=== PATIENT | female | born 1945 | race Caucasian/White ===

== ENCOUNTER 2019-07-31 10:06 | Day surgery (SDC) | payer MEDICARE, OTHER ==
[2019-07-29 15:10] VITALS: BMI 33.2
[~2019-07-31 10:06] MED LIST: LACTATED RINGERS 1,000 ML IV SCH; LIDOCAINE 1% (10MG/ML) FOR IV START INTRADERMA PRN
[2019-07-31 11:18] VITALS: TEMP 97.7
[2019-07-31] MEDS ORDERED: PROPOFOL 10 MG/ML 20 ML VIAL IV ONE (11:47)
[2019-07-31] MEDS ORDERED: LIDOCAINE 1% INJ 10MG/ML (20 ML MDV) ONE (11:47)
--- NOTE | 2019-07-31 11:53 | P.GSHP ---
History of Present Illness H&P Date: 07/31/19 CHIEF COMPLAINT: Colon screen HISTORY OF PRESENT ILLNESS: The patient is a 73-year-old female who presents for colon screen. Lower endoscopy was offered for further evaluation and management. PAST MEDICAL HISTORY: Please see list. PAST SURGICAL HISTORY: Please see list. MEDICATIONS: Please see list. ALLERGIES: Please see list. SOCIAL HISTORY: No illicit drug use FAMILY HISTORY: No reports of Crohn disease or ulcerative colitis. REVIEW OF ORGAN SYSTEMS: CONSTITUTIONAL: No reports of fevers or chills. PHYSICAL EXAM: VITAL SIGNS: Stable GENERAL: Well-developed pleasant in no acute distress. HEENT: No scleral icterus. Extraocular movements grossly intact. Moist buccal mucosa. NECK: Supple without lymphadenopathy. CHEST: Unlabored respirations. Equal bilateral excursions. CARDIOVASCULAR: Regular rate and rhythm. Distal 2+ pulses. ABDOMEN: Soft, nontender, nondistended. MUSCULOSKELETAL: No clubbing, cyanosis, or edema. ASSESSMENT: 1. Colon screen. PLAN: 1. Recommend proceeding with a lower endoscopy Past Medical History Past Medical History: Asthma, Neurologic Disorder, Osteoarthritis (OA) Additional Past Medical History / Comment(s): arthritis in back, rectal bleeding. colon polyps History of Any Multi-Drug Resistant Organisms: None Reported Past Surgical History: Cholecystectomy, Hysterectomy, Joint Replacement Additional Past Surgical History / Comment(s): lt knee replacement, rt knee surgery Past Anesthesia/Blood Transfusion Reactions: No Reported Reaction Smoking Status: Former smoker - Past Family History Mother Family Medical History: No Reported History Medications and Allergies Home Medications Medication Instructions Recorded Confirmed Type Albuterol Sulfate [Proair Hfa] 1 - 2 puff INHALATION Q6HR PRN 07/29/19 07/29/19 History Ascorbic Acid [Vitamin C] 500 mg PO DAILY 07/29/19 07/29/19 History Baclofen [Lioresal] 20 mg PO DAILY 07/29/19 07/29/19 History Budesonide/Formoterol Fumarate 2 puff INHALATION BID 07/29/19 07/29/19 History [Symbicort 160-4.5 Mcg Inhaler] Docusate [Colace] 100 mg PO DAILY 07/29/19 07/29/19 History Fluticasone Propionate 110 Mcg 1 puff INHALATION RT-BID PRN 07/29/19 07/29/19 History [Flovent 110 Mcg Inhaler (Bulk)] Folic Acid 0.8 mg PO DAILY 07/29/19 07/29/19 History Garlic 1 each PO DAILY 07/29/19 07/29/19 History Loratadine [Claritin] 10 mg PO DAILY 07/29/19 07/29/19 History Magnesium Oxide [Mag-Ox] 250 mg PO TID 07/29/19 07/29/19 History Montelukast [Singulair] 10 mg PO DAILY 07/29/19 07/29/19 History Multivitamins, Thera [Multivitamin 1 tab PO DAILY 07/29/19 07/29/19 History (formulary)] Oxybutynin Chloride [Ditropan] 5 mg PO DAILY 07/29/19 07/29/19 History Pravastatin Sodium [Pravachol] 10 mg PO DAILY 07/29/19 07/29/19 History Pyridoxine HCl (Vitamin B6) 100 mg PO DAILY 07/29/19 07/29/19 History [Vitamin B-6] Zinc 50 mg PO DAILY 07/29/19 07/29/19 History valACYclovir HCL [Valtrex] 500 mg PO DAILY 07/29/19 07/29/19 History Allergies Allergy/AdvReac Type Severity Reaction Status Date / Time aspirin Allergy Rash/Hives Verified 07/31/19 11:07 Penicillins Allergy Rash/Hives Verified 07/31/19 11:07 Surgical - Exam Vital Signs Temp Pulse Resp BP Pulse Ox 97.7 F 80 16 136/60 97 07/31/19 11:16 07/31/19 11:16 07/31/19 11:16 07/31/19 11:16 07/31/19 11:16
--- NOTE | 2019-07-31 12:13 | P.PCN ---
Date of Procedure: 07/31/19 Description of Procedure: PREOPERATIVE DIAGNOSIS: Personal history colon polyps Colonoscopy screening POSTOPERATIVE DIAGNOSIS: Personal history colon polyps Colonoscopy screening Diverticulosis, scattered. OPERATION: Colonoscopy to the ileocecal valve and appendiceal orifice. SURGEON: Alize Nix MD. ANESTHESIA: MAC. INDICATIONS: The patient is a 73-year-old female who presents for colonoscopy screening. Last colonoscopy 5 years ago. Benefits and risks were described and informed consent was obtained. DESCRIPTION OF PROCEDURE: The patient had undergone Suprep. She had been brought into the operating room and laid in the left lateral decubitus position. After adequate intravenous stanford tion, the rectum was examined with 2% lidocaine jelly. External hemorrhoids were encountered. The rectal tone was within normal limits. No lesions were palpated in the rectal vault. An Olympus colonoscope was advanced until the ileocecal valve and appendiceal orifice were clearly viewed. The prep was excellent with clear visualization of the mucosal folds. Few scattered diverticulosis was encountered. No colonic polyps were found. No evidence of focal colitis was found. Retroflexion of the scope demonstrated grade 1 internal hemorrhoids. The colon was desufflated. The patient had tolerated the procedure well. Withdrawal time was over 6 minutes. FINDINGS: Aronchick preparation quality scale 1 (1-5) Internal hemorrhoids, grade 1 External prolapsed hemorrhoids, grade 1 No arteriovenous malformations. No adenomatous polyps. No focal colitis. RECOMMENDATIONS: Lower endoscopy in 5 years or Cologaurd Plan - Discharge Summary Discharge Rx Participant: No New Discharge Prescriptions: Continue Budesonide/Formoterol Fumarate [Symbicort 160-4.5 Mcg Inhaler] 2 puff INHALATION BID Albuterol Sulfate [Proair Hfa] 1 - 2 puff INHALATION Q6HR PRN PRN Reason: Dyspnea valACYclovir HCL [Valtrex] 500 mg PO DAILY Docusate [Colace] 100 mg PO DAILY Zinc 50 mg PO DAILY Ascorbic Acid [Vitamin C] 500 mg PO DAILY Pyridoxine HCl (Vitamin B6) [Vitamin B-6] 100 mg PO DAILY Multivitamins, Thera [Multivitamin (formulary)] 1 tab PO DAILY Magnesium Oxide [Mag-Ox] 250 mg PO TID Pravastatin Sodium [Pravachol] 10 mg PO DAILY Oxybutynin Chloride [Ditropan] 5 mg PO DAILY Montelukast [Singulair] 10 mg PO DAILY Baclofen [Lioresal] 20 mg PO DAILY Loratadine [Claritin] 10 mg PO DAILY Fluticasone Propionate 110 Mcg [Flovent 110 Mcg Inhaler (Bulk)] 1 puff INHALATION RT-BID PRN PRN Reason: Dyspnea Garlic 1 each PO DAILY Folic Acid 0.8 mg PO DAILY Discharge Medication List Albuterol Sulfate [Proair Hfa] 1 - 2 puff INHALATION Q6HR PRN 07/29/19 [History] Ascorbic Acid [Vitamin C] 500 mg PO DAILY 07/29/19 [History] Baclofen [Lioresal] 20 mg PO DAILY 07/29/19 [History] Budesonide/Formoterol Fumarate [Symbicort 160-4.5 Mcg Inhaler] 2 puff INHALATION BID 07/29/19 [History] Docusate [Colace] 100 mg PO DAILY 07/29/19 [History] Fluticasone Propionate 110 Mcg [Flovent 110 Mcg Inhaler (Bulk)] 1 puff INHALATION RT-BID PRN 07/29/19 [History] Folic Acid 0.8 mg PO DAILY 07/29/19 [History] Garlic 1 each PO DAILY 07/29/19 [History] Loratadine [Claritin] 10 mg PO DAILY 07/29/19 [History] Magnesium Oxide [Mag-Ox] 250 mg PO TID 07/29/19 [History] Montelukast [Singulair] 10 mg PO DAILY 07/29/19 [History] Multivitamins, Thera [Multivitamin (formulary)] 1 tab PO DAILY 07/29/19 [History] Oxybutynin Chloride [Ditropan] 5 mg PO DAILY 07/29/19 [History] Pravastatin Sodium [Pravachol] 10 mg PO DAILY 07/29/19 [History] Pyridoxine HCl (Vitamin B6) [Vitamin B-6] 100 mg PO DAILY 07/29/19 [History] Zinc 50 mg PO DAILY 07/29/19 [History] valACYclovir HCL [Valtrex] 500 mg PO DAILY 07/29/19 [History] Discharge Disposition: HOME SELF-CARE
[2019-07-31 12:39] VITALS: BP 130/72; PULSE 79; RESP 15
== END 2019-07-31 13:13 | disposition home or self-care (01) ==
LOC: ORWHC2ENDO 10:06
PROVIDERS: ATTEND Surgery Plastic and Reconstructive Surgery
DX: Z12.11 Encounter for screening for malignant neoplasm of colon (principal); K57.30 Diverticulosis of large intestine without perforation or abscess without bleeding; K64.0 First degree hemorrhoids; K64.4 Residual hemorrhoidal skin tags; Z86.010 Personal history of colon polyps; J44.9 Chronic obstructive pulmonary disease, unspecified; G35 Multiple sclerosis; M19.90 Unspecified osteoarthritis, unspecified site; Z88.0 Allergy status to penicillin; Z88.6 Allergy status to analgesic agent; Z87.891 Personal history of nicotine dependence; Z79.51 Long term (current) use of inhaled steroids; Z79.899 Other long term (current) drug therapy
CPT/HCPCS: J2001; J2704; G0105; 45378

== ENCOUNTER → 2022-09-02 | Outpatient (CLI) | payer MEDICARE, OTHER ==
[2022-09-02 11:54] LABS: Partial Thromboplastin Time 22.4 sec (22.0-30.0); Prothrombin Time 10.5 sec (9.0-12.0)
[2022-09-02 15:17] LABS: HCT 42.2 % (37.2-46.3); HGB 13.7 g/dL (12.0-15.0); MCH 31.8 pg (27.0-32.0); MCHC 32.5 g/dL (32.0-37.0); MCV 97.9 fL (80.0-97.0); Mean Platelet Volume 11.8 fL (9.5-12.2); NRBC Per 100 WBC 0 /100 WBCS (0.0-0.0); Platelet Count 204 X 10*3/uL (140-440); RBC 4.31 X 10*6/uL (4.10-5.20); RDW 11.9 % (11.5-14.5); WBC 6.28 X 10*3/uL (4.50-10.00)
[2022-09-02 15:49] LABS: African American GFR (CKD) 57.9 (60.0-200.0); Albumin 4.5 g/dL (3.8-4.9); Albumin/Globulin Ratio 1.78 (1.60-3.17); Anion Gap 9.4 mmol/L (10.00-18.00); BUN/Creat Ratio 18.17 Ratio (12.00-20.00); Blood Urea Nitrogen 19.8 mg/dL (9.0-27.0); Carbon Dioxide 26.4 mmol/L (20.0-27.5); Globulin 2.5 g/dL (1.6-3.3); Potassium 4.8 mmol/L (3.5-5.5); Total Bilirubin 0.5 mg/dL (0.30-1.20)
[2022-09-02 22:53] LABS: Appearance,Urine Clear (Clear); Bilirubin,Urine Negative (Negative); Blood,Urine Trace (Negative); Color,Urine Yellow (Yellow); Ketones,Urine Negative (Negative); Nitrite,Urine Negative (Negative); PH, Urine 5.5 (5.0-8.0); Specific Gravity,Urine 1.022 (1.001-1.030); Urobilinogen,Urine 0.2 (0.2,1.0)
[2022-09-03 00:21] LABS: Bacteria,Urine None Seen /HPF (None Seen); Calcium Oxalate Crystals,Urine Present /LPF (None Seen); Mucus,Urine Present /LPF (None Seen)
== END | disposition home or self-care (01) ==
LOC: LABPAT 10:25
PROVIDERS: ATTEND Orthopaedic Surgery
DX: Z01.812 Encounter for preprocedural laboratory examination (principal); M17.11 Unilateral primary osteoarthritis, right knee; R94.31 Abnormal electrocardiogram [ECG] [EKG]
CPT/HCPCS: 80053; 81001; 85027; 85610; 85730; 87070; 93005

== ENCOUNTER → 2022-10-26 | Outpatient (CLI) | payer MEDICARE, OTHER ==
[2022-10-26 20:39] LABS: ALT 21 U/L (8-44); AST 22 U/L (13-35); Albumin 4.6 d/dL (3.8-4.9); Alkaline Phosphatase 65 U/L (41-126); Blood Urea Nitrogen 20.3 mg/dL (9.0-27.0); Calcium 10.2 mg/dL (8.7-10.3); Carbon Dioxide 27.1 mmol/L (21.6-31.8); Chloride 106 mmol/L (96-109); Globulin 2.7 d/dL (1.6-3.3); Glucose 91 mg/dL (70-110); Sodium 143 mmol/L (135-145); Total Bilirubin 0.4 mg/dL (0.3-1.2); Total Protein 7.3 d/dL (6.2-8.2)
[2022-10-26 22:40] LABS: HCT 34.8 % (37.2-46.3); HGB 11.1 d/dL (12.0-15.0); MCH 31.7 pg (27.0-32.0); MCHC 31.9 d/dL (32.0-37.0); MCV 99.4 FL (80.0-97.0); Mean Platelet Volume 13.3 FL (9.5-12.2); NRBC Per 100 WBC 0 X 10*3/uL (0.00-0.01); Platelet Count 191 X 10*3/uL (140-440); RDW 12.3 % (11.5-14.5); WBC 5.54 X 10*3/uL (4.50-10.00)
[2022-10-27 00:40] LABS: Appearance,Urine Clear (Clear); Bacteria,Urine Trace; Bilirubin,Urine Negative (Negative); Blood,Urine Negative (Negative); Color,Urine Yellow (Yellow); Ketones,Urine Negative (Negative); Nitrite,Urine Negative (Negative); Specific Gravity,Urine 1.018 (1.001-1.030); Urobilinogen,Urine 0.2
== END | disposition home or self-care (01) ==
LOC: LABPAT 11:13
PROVIDERS: ATTEND Orthopaedic Surgery
DX: Z01.812 Encounter for preprocedural laboratory examination (principal); M17.11 Unilateral primary osteoarthritis, right knee
CPT/HCPCS: 80053; 81001; 85027; 87070; 93005

== ENCOUNTER → 2023-01-30 | Outpatient (CLI) | payer MEDICARE, OTHER ==
[2023-01-30 11:17] LABS: Partial Thromboplastin Time 23.3 sec (22.0-30.0); Prothrombin Time 10.2 sec (9.0-12.0)
[2023-01-30 12:07] LABS: Appearance,Urine Cloudy (Clear); Bacteria,Urine Occasional /hpf; Bilirubin,Urine Negative (Negative); Blood,Urine Moderate (Negative); Calcium Oxalate Crystals,Urine Rare /hpf; Color,Urine Yellow; Glucose,Urine (UA) Negative (Negative); Hyaline Casts,Urine 3 /lpf (0-2); Ketones,Urine Negative (Negative); Leukocyte Esterase,Urine Large (Negative); Mucus,Urine Occasional /hpf; Nitrite,Urine Negative (Negative); PH, Urine 5.5 (5.0-8.0); Protein,Urine Trace (Negative); RBC,Urine 9 /hpf (0-5); Specific Gravity,Urine 1.018 (1.001-1.035); Squamous Epithelial Cell,Urine 3 /hpf (0-4); Urobilinogen,Urine <2.0 mg/dL (<2.0); WBC,Urine 11 /hpf (0-5)
[2023-01-30 16:29] LABS: ALT 16 U/L (8-44); AST 21 U/L (13-35); Albumin 4.5 d/dL (3.8-4.9); Alkaline Phosphatase 69 U/L (41-126); BUN/Creat Ratio 17.09 Ratio (12.00-20.00); Blood Urea Nitrogen 18.8 mg/dL (9.0-27.0); Calcium 9.9 mg/dL (8.7-10.3); Carbon Dioxide 25.2 mmol/L (21.6-31.8); Chloride 106 mmol/L (96-109); Globulin 2.5 d/dL (1.6-3.3); Glucose 102 mg/dL (70-110); Potassium 4.7 mmol/L (3.5-5.5); Sodium 141 mmol/L (135-145); Total Bilirubin 0.3 mg/dL (0.3-1.2)
[2023-01-30 18:23] LABS: HCT 41.7 % (37.2-46.3); HGB 13.5 d/dL (12.0-15.0); MCH 32.2 pg (27.0-32.0); MCHC 32.4 d/dL (32.0-37.0); MCV 99.5 FL (80.0-97.0); Mean Platelet Volume 12.4 FL (9.5-12.2); NRBC Per 100 WBC 0 X 10*3/uL (0.00-0.01); Platelet Count 240 X 10*3/uL (140-440); RBC 4.19 X 10*6/uL (4.10-5.20); RDW 12.2 % (11.5-14.5); WBC 7.08 X 10*3/uL (4.50-10.00)
== END | disposition home or self-care (01) ==
LOC: LABPAT 09:47
PROVIDERS: ATTEND Orthopaedic Surgery
DX: Z01.812 Encounter for preprocedural laboratory examination (principal); M17.11 Unilateral primary osteoarthritis, right knee
CPT/HCPCS: 80053; 81001; 85027; 85610; 85730; 87070

== ENCOUNTER 2023-02-20 10:37 | Inpatient (IN) | payer MEDICARE, OTHER ==
[~2023-02-20 10:37] MED LIST changes: +ACETAMINOPHEN TAB 500 MG TAB PO PRN; +GABAPENTIN 300 MG CAP PO PRN; -LACTATED RINGERS 1,000 ML IV SCH; -LIDOCAINE 1% (10MG/ML) FOR IV START INTRADERMA PRN; +MELOXICAM 7.5 MG TAB PO PRN; +MIDAZOLAM 2 MG/2 ML VIAL IV PRN; +TRANEXAMIC 1,000 MG/100ML-NACL 1,000 MG in SALINE 1 100ML.BAG IVPB PRN
[2023-02-20] MEDS: LACTATED RINGERS 1,000 ML IV SCH ×2 (11:30→16:15)
[2023-02-20] MEDS ORDERED: ONDANSETRON 4 MG/2 ML VIAL IVP PRN (11:46)
[2023-02-20] MEDS ORDERED: bisacodyL 10 MG SUPP RECTAL PRN (11:46)
[2023-02-20] MEDS ORDERED: MAGNESIUM HYDROXIDE 2,400 MG/30 ML CUP PO PRN (11:46)
[2023-02-20] MEDS ORDERED: NA PHOS,M-B/NA PHOS,DI-BA 133 ML ENEMA RECTAL PRN (11:46)
[2023-02-20] MEDS ORDERED: HYDROmorphone 0.5 MG/0.5 ML SYRINGE IVP PRN ×2 (11:46)
[2023-02-20] MEDS ORDERED: ONDANSETRON 4 MG/2 ML VIAL ONE (11:48)
[2023-02-20] MEDS ORDERED: HYDROcodone/APAP 7.5-325MG 1 EACH TAB PO PRN (11:49)
[2023-02-20] MEDS ORDERED: MIDAZOLAM 2 MG/2 ML VIAL IVP ONE (12:27)
[2023-02-20] MEDS ORDERED: fentaNYL (PF) 50 MCG/ML 2 ML AMP IVP ONE (12:28)
[2023-02-20] MEDS ORDERED: SODIUM CHLORIDE 0.9% (PF) 10 ML VIAL ONE (12:44)
[2023-02-20] MEDS ORDERED: SUCCINYLCHOLINE CHLORIDE 200 MG/10 ML VIAL IV ONE (12:44)
[2023-02-20] MEDS ORDERED: TRANEXAMIC 1,000 MG/100ML-NACL PREMIX BAG ONE (12:44)
[2023-02-20] MEDS ORDERED: fentaNYL (PF) 50 MCG/ML 2 ML AMP ONE (12:44)
[2023-02-20] MEDS ORDERED: ROCURONIUM 10 MG/ML (5 ML VIAL) IV ONE (12:44)
[2023-02-20] MEDS ORDERED: PROPOFOL 10 MG/ML 20 ML VIAL IV ONE (12:44)
[2023-02-20] MEDS ORDERED: ROPIVACAINE 5 MG/ML 30 ML VIAL ONE (12:44)
[2023-02-20] MEDS ORDERED: MIDAZOLAM 2 MG/2 ML VIAL ONE (12:44)
[2023-02-20] MEDS ORDERED: LIDOCAINE 1% INJ 10MG/ML (20 ML MDV) ONE (12:44)
[2023-02-20] MEDS ORDERED: ceFAZolin 1,000 MG in SODIUM CHLORIDE 0.9% 1,000 ML IRRIGATION ONE (12:47)
[2023-02-20] MEDS ORDERED: LACTATED RINGERS 1,000 ML IV ONE (13:08)
--- NOTE | 2023-02-20 13:53 | P.OP ---
Date of Procedure: 02/20/23 Preoperative Diagnosis: Severe osteoarthritis right knee Postoperative Diagnosis: Severe osteoarthritis right knee Procedure(s) Performed: Right total knee arthroplasty Implants: [employer] Journey II CR Oxinium cruciate retaining femoral component size 5, right [employer] Journey nonporous tibial baseplate size 4, right [employer] Journey II, XLPE Deep Dished articular insert, size 11 mm, Size 3-4, right [employer] Journey Wendy II resurfacing patellar component, oval, 29 mm All components were cemented using Palacos R bone cement The articulation is Oxinium on polyethylene Anesthesia: LISANDRA Surgeon: Kapil Trinidad Dredging Inspector #1: Laureen Kruger Estimated Blood Loss (ml): 50 Pathology: none sent Condition: stable Disposition: PACU Indications for Procedure: The patient's knee is end-stage, and conservative management has failed. The operation of knee replacement has been discussed at length in the office, as well as potential risks and complications. These are inclusive of, but not limited to: Infection, bleeding, scarring, discomfort, stiffness, blood vessel and nerve damage, need for further surgery, failure to relieve symptoms, persistence, recurrence, or worsening of problems, loosening, dislocation, wear, blood clot, pulmonary embolism, , gait dysfunction, stiffness, and other risks as discussed in the office. Patient elects to proceed and the consent form has been signed. Operative Findings: The operative findings are consistent with severe osteoarthritis of the right knee Description of Procedure: The patient was seen in the preoperative area, the consent was reviewed and the operative site was marked with a skin marker. The patient verified the procedure and the operative site. An adductor canal pain catheter and an iPACK block were placed by anesthesia in the preoperative area. The patient was then brought to the operating room and positioned on the operating room table in the supine position. Preoperative antibiotics and a gram of tranexamic acid were given intravenously. A general anesthetic was administered by the anesthesia department. Care was taken to make sure that all pressure points were adequately padded. A tourniquet was placed on the upper thigh and the lower extremity was prepped with ChloraPrep and draped in usual sterile fashion. A universal time-out was then performed which confirmed the patient's name, surgical site, ALLERGIES, and consent. The lower extremity was then exsanguinated and tourniquet was inflated to 250 mmHg. A standard anterior midline approach to the knee was performed. The skin and subcutaneous tissue were sharply dissected down to the patellar tendon. A medial parapatellar arthrotomy was then performed. The knee was then extended, the patellar was everted, and the knee was flexed. The infra-patellar fat pad was removed in order to enhance exposure. The anterior horns of both menisci were excised, and a release was performed to the posterior medial aspect of the knee. On gross visual inspection, there was complete loss of articular cartilage in the medial and patellofemoral joint spaces. There was also significant cartilage damage in the lateral compartment. There were multiple periarticular osteophytes globally about the knee which were then removed with a Ronguer. The femoral canal was then opened with the 9.5 mm intramedullary drill. The 8 mm intramedullary raj was then inserted into the femoral canal with the distal femoral cutting guide set for 5 of valgus. The distal femoral cutting block was then pinned in place. The intramedullary raj was then removed, and the distal femur was then cut. The cutting block was then removed and the cut was checked for symmetry. The resected bone was then measured to confirm the appropriate distal femoral resection. Next, the sizing guide was then placed and set for 3 external rotation based off of the epicondylar axis and Graves's line. Pins were then placed and the drill holes, and the femur was sized with the sizing stylus. The pins were then removed, and the sizing guide was then removed. The spikes of the appropriate size femoral block was then placed into the predrilled holes, and malleted into place. Two 45 mm pins were then placed into the fixation holes on the cutting block. An rodolfo wing was then used to ensure there would be no notching with the anterior cut. The anterior condyles were cut without notching. The anterior chord cut was then performed, followed by the posterior cut, posterior chamfer cut, and the anterior chamfer cut. The collateral ligaments were protected during the entire process. The cutting block was then removed. Any remaining bone and osteophytes were removed from the femur with a Ronguer. Attention was then directed to the tibia. The remaining ACL was removed with a Ronguer, and the tibia was then gently subluxed forward with a large bent knee retractor. Any remaining menisci were excised. The posterior lateral corner was cauterized in order to coagulate the lateral geniculate artery. The extra medullary tibial cutting guide was then placed, set for the appropriate rotation, slope, and depth of resection. The proximal tibia cutting guide was then pinned in place. Proximal tibia was then cut and sized. A curved osteotome was then used to remove any posterior osteophytes from the distal femur. The femoral trial was placed. A narrow saw blade was then used to remove the anterior intracondylar femoral bone. The CR notch trial was then placed. The tibial trial was placed with the appropriate-sized insert. The knee was able to fully extend and flex to 130 and was stable throughout all range of motion. The knee was then extended and the patella was everted. Patella was then measured, and then using an osteotomy guide, the patella was cut at the appropriate level. The patellar component was sized. The patellar drill guide was placed and the patella was drilled. The patella trial was then placed. The knee was then taken through range of motion with the patella trial and the patella tracked normally using the no thumbs technique. The patella trial was t hen removed. The knee was then flexed and lug holes were drilled through the femoral trial and the femoral trial was then removed. The tibial was then re- exposed, and the tibial broach guide was then pinned in place after it was set for the appropriate rotation to allow for the most coverage without overhang. The tibia was then reamed and broached. The femoral canal was plugged with autologous bone. The cut surfaces of bone were then irrigated with pulsatile lavage. The knee was also irrigated with Irrisept solution. The components were then opened, the cement was mixed. Cement was placed on the backside of the femoral, tibial, and patellar components. Cement was then applied to the tibial surface and pressurized into the surface using finger pressurization technique. The tibial component was then applied and excess cement was removed after it was impacted securely noted to be flush with the cut surface. In similar fashion, the cement was applied to the cut femoral surface, pressurized and using finger pressurization the component was impacted in place. Excess cement was removed. The polyethylene spacer was then implanted and locked into position. Patellar component was then applied in a similar technique and the patellar clamp was used to hold patella in place while the cement hardened. The knee was held in full extension while the cement hardened. Once the cement had fully hardened, the knee was reinspected. Any other cement extrusion was removed the final range of motion testing showed range of motion from 0-130 with excellent stability, both medial and laterally and appropriate alignment of the leg. Patella tracked normally. After the cemented hardened, the tourniquet was released and hemostasis was obtained. A second gram of transexamic acid was given intravenously. The knee was again irrigated. The knee was again taken through range of motion and found to be stable throughout all range of motion of 0-130, and the patella tracked normally. The fascia was then closed with 0 Vicryl followed by #2 strata fix suture. The subcutaneous tissue was closed with 3-0 Vicryl and 3-0 strata fix. Exofin glue was used for the skin and placed with the knee in flexion. After the glue had dried, and Optafoam silver impregnated dressing was applied. A lightly compressive dressing was applied using web roll and Herbert wrap. Patient was then transferred to the stretcher and taken to recovery room in stable condition. Sponge and needle counts were correct. The certified surgical tech/first assistant ANGELITA Tripathi was required due the complexity surgery and the need for a skilled operating room surgical technologist. She assisted in positioning, draping, retraction, and closure of the wound.
[2023-02-20] MEDS ORDERED: ROPIVACAINE 1,100 MG, SODIUM CHLORIDE 0.9% 500 ML 330 ML, EMPTY PAIN BALL 1 EACH MISCELLANE PRN ×2 (14:44)
[2023-02-20] MEDS: HYDROmorphone 0.5 MG/0.5 ML SYRINGE IVP PRN ×4 (14:48→23:52)
[2023-02-20] MEDS ORDERED: SODIUM CHLORIDE 0.9% 1,000 ML IV ONE (15:36)
[2023-02-20] MEDS: HYDROcodone/APAP 7.5-325MG 1 EACH TAB PO PRN ×2 (16:02→22:00)
[2023-02-20] MEDS: SODIUM CHLORIDE 0.9% 1,000 ML IV SCH (16:17)
--- NOTE | 2023-02-20 16:50 | XR ---
EXAMINATION TYPE: XR knee limited RT DATE OF EXAM: 02/20/2023 4:39 PM CLINICAL INDICATION:Female, 77 years old with history of Evaluation for Postop abnormality and alignm ent; [facility] COMPARISON: None. TECHNIQUE: XR knee limited RT; examined in Frontal, lateral projections. FINDINGS: Status post total knee arthroplasty changes with hardware in appropriate alignment and in tact. No evidence of fracture. Subcutaneous lucencies and lucencies within the joint consistent with surgical changes. IMPRESSION: Status post total knee arthroplasty changes with hardware intact and appropriate alignment. No fractu res identified.
--- NOTE | 2023-02-20 18:17 | P.ANPRN ---
Procedure Note - Anesthesia - Nerve Block Performed Right Adductor Canal Time Out Performed: Yes (:26) Date of Procedure: 02/20/23 Procedure Start Time: : Procedure Stop Time: : Location of Patient: PreOp Indication: Acute Post-Operative Pain, Requested by Surgeon (Dr Kapil Trinidad) Sedation Type: Sedate with meaningful contact maintained Preparation: Sterile Prep, Sterile Dressing Position: Supine Catheter: Indwelling Needle Types: Pajunk Needle Gauge: 21 Ultrasound used to visualize needle placement: Yes Ultrasound used to observe medication spread: Yes Injectate: 0.5% Ropivacaine (see comment for volume) (20cc) Blood Aspirated: No Pain Paresthesia on Injection Noted: No Resistance on Injection: Normal Image Stored and Saved: Yes Events: Uneventful and Well Tolerated
--- NOTE | 2023-02-20 18:18 | P.ANPRN ---
Procedure Note - Anesthesia - Nerve Block Performed Right iPack Time Out Performed: Yes Date of Procedure: 02/20/23 Procedure Start Time: 12:36 Procedure Stop Time: 12:41 Location of Patient: PreOp Indication: Acute Post-Operative Pain, Requested by Surgeon (ryann Trinidad) Sedation Type: Sedate with meaningful contact maintained Preparation: Sterile Prep Position: Supine Catheter: None Needle Types: Pajunk Needle Gauge: 21 Ultrasound used to visualize needle placement: Yes Ultrasound used to observe medication spread: Yes Injectate: 0.5% Ropivacaine (see comment for volume) (15cc +5cc PF Normal saline) Blood Aspirated: No Pain Paresthesia on Injection Noted: No Resistance on Injection: Normal Image Stored and Saved: Yes Events: Uneventful and Well Tolerated
[2023-02-20] MEDS: PRAVASTATIN SODIUM 20 MG TAB PO SCH (21:02)
[2023-02-20] MEDS: BACLOFEN 10 MG TAB PO SCH (21:02)
[2023-02-20] MEDS: MONTELUKAST 10 MG TAB PO SCH (21:03)
[2023-02-20] MEDS: SENNOSIDES-DOCUSATE SODIUM 1 EACH TAB PO SCH (21:03)
--- NOTE | 2023-02-20 21:37 | P.CONS ---
History of Present Illness - Reason for Consult Consult date: 02/20/23 Medical management Requesting physician: Kapil Trinidad - Chief Complaint Right knee surgery - History of Present Illness This is a very pleasant 77-year-old patient who follows with Lou Glaser/Dr. Pérez. Chronic stable medical conditions include asthma, hyperlipidemia, chronic genital tonight to herpes for which she takes Valtrex for years, multiple sclerosis. Because of the latter she has chronic weakness in the right leg. With severe arthritis. Patient is undergoing right total knee arthroplasty. Postprocedure pain control. No nausea vomiting. No chest pain or shortness of breath. Review of systems: GEN.: Tired EYES: None HEENT: None NECK: None RESPIRATORY: None CARDIOVASCULAR: None GASTROINTESTINAL: None GENITOURINARY: Urinary incontinence MUSCULOSKELETAL: Joint pains LYMPHATICS: None HEMATOLOGICAL: None PSYCHIATRY: None NEUROLOGICAL: Chronic weakness right leg, insomnia Past medical history to include: Asthma, hyperlipidemia, osteoporosis, colon polyps, multiple sclerosis, genital herpes chronically on Valtrex Social history: Alcohol rarely. Smoked for about a short time the remote past. Lives alone. Physical examination: VITAL SIGNS: 73, 18, 120/67, 99% on 3 L GENERAL: BMI 35.4, declining but awake comfortable. EYES: Pupils equal. Conjunctiva normal. HEENT: External appearance of nose and ears normal, oral cavity grossly normal. NECK: JVD not raised; masses not palpable. HEART: First and second heart sounds are normal; no edema. LUNGS: Respiratory rate normal; clear to auscultation. ABDOMEN: Soft, nontender, liver spleen not palpable, no masses palpable. PSYCH: Alert and oriented x3; mood and affect normal. MUSCULOSKELETAL:No Clubbing/cyanosis;muscles-grossly intact. Dressing over the right knee. Evidence of white other joints NEUROLOGICAL: Cranial nerves grossly intact; no facial asymmetry, power and sensation grossly intact. LYMPHATICS: No lymph nodes palpable in the axilla and neck INVESTIGATIONS, reviewed in the clinical context: 01/30/2023: White count 7.08 hemoglobin 13.5 platelets 240 sodium 141 potassium 4.7. 18.8 creatinine 1.1 Assessment plan: -Right total knee arthroplasty. Pain control. Eliquis were DVT prophylaxis -Moderate persistent asthma Breo ellipta. Singulair. -Hyperlipidemia Pravachol -Chronic gait dysfunction from underlying MS with right leg weakness -Chronic multiple sclerosis -Chronic genital herpes Valtrex 500 mg a day maintenance dose Care was discussed with the patient. Questions answered. Home medications renewed. Thank you Dr. Trinidad Past Medical History Past Medical History: Asthma, Hyperlipidemia, Osteoarthritis (OA) Additional Past Medical History / Comment(s): arthritis in back, rectal bleeding ,. colon polyps, MS, genital herpes history-valtrex has been taking for for over ten years per pt. History of Any Multi-Drug Resistant Organisms: None Reported Past Surgical History: Cholecystectomy, Hysterectomy, Joint Replacement, Orthopedic Surgery Additional Past Surgical History / Comment(s): lt knee replacement, rt knee surgery Past Anesthesia/Blood Transfusion Reactions: No Reported Reaction Past Psychological History: No Psychological Hx Reported Smoking Status: Former smoker Past Alcohol Use History: Rare Additional Past Alcohol Use History / Comment(s): smoker 10 years <1ppd Past Drug Use History: None Reported - Past Family History Mother Family Medical History: No Reported History Medications and Allergies Home Medications Medication Instructions Recorded Confirmed Type Baclofen [Lioresal] 20 mg PO HS 07/29/19 02/20/23 History Docusate [Colace] 100 mg PO DAILY 07/29/19 02/20/23 History Montelukast [Singulair] 10 mg PO HS 07/29/19 02/20/23 History Pravastatin Sodium [Pravachol] 10 mg PO HS 07/29/19 02/20/23 History valACYclovir HCL [Valtrex] 500 mg PO DAILY 07/29/19 02/20/23 History Acetaminophen/Diphenhydramine 1 tab PO HS 09/05/22 02/20/23 History [Tylenol PM 500-25mg] Fluticasone/Vilanterol [Breo 1 dose INHALATION DAILY 02/17/23 02/20/23 History Ellipta 200-25 Mcg Inhaler] Apixaban [Eliquis] 2.5 mg PO BID 30 Days #60 tab 02/20/23 Rx HYDROcodone/APAP 7.5-325MG [[place] 1 - 2 tab PO Q6H PRN #32 tab 02/20/23 Rx 7.5-325] Sennosides [Senokot] 2 tab PO DAILY PRN #60 tablet 02/20/23 Rx Allergies Allergy/AdvReac Type Severity Reaction Status Date / Time aspirin Allergy Rash/Hives, Verified 02/20/23 10:59 dyspnea Penicillins Allergy Dyspnea Verified 02/20/23 11:04 sulfamethoxazole Allergy Rash/Hives Verified 02/20/23 11:02 [From Bactrim] trimethoprim [From Bactrim] Allergy Rash/Hives Verified 02/20/23 11:02 Physical Exam Vitals: Vital Signs Temp Pulse Pulse Pulse Resp BP Pulse Ox 02/20/23 19:20 73 18 120/67 99 02/20/23 17:12 68 135/67 100 02/20/23 17:11 72 150/78 99 02/20/23 17:10 82 152/70 95 02/20/23 15:33 78 16 147/63 100 02/20/23 15:25 74 163/79 98 02/20/23 15:15 68 16 164/77 100 02/20/23 15:01 76 16 162/77 100 02/20/23 14:45 70 16 169/73 100 02/20/23 14:30 71 16 145/70 100 02/20/23 14:19 98.2 F 86 18 96/76 92 L 02/20/23 12:40 68 17 155/70 100 02/20/23 11:05 97.3 F L 77 18 162/72 99 Intake and Output 02/20/23 02/20/23 02/20/23 06:59 14:59 22:59 Intake Total 2050 210 Output Total 250 300 Balance 180 -90 Intake: IV 2050 Intake, IV Titration 210 Amount Sodium Chloride 0.9% 1, 210 000 ml @ 70 mls/hr IV . [id number] [facility] Rx#:[id number] Output: Urine 200 300 Estimated Blood Loss 50 Other: # Voids 2 Weight 99.4 kg 99.4 kg
[2023-02-21] MEDS: SODIUM CHLORIDE 0.9% 1,000 ML IV SCH ×2 (05:11→17:31)
[2023-02-21] MEDS: HYDROmorphone 0.5 MG/0.5 ML SYRINGE IVP PRN ×6 (05:47→21:44)
--- NOTE | 2023-02-21 07:00 | P.PN ---
Progress Note - Text The patient is status post right adductor canal catheter placement. The catheter was placed for postoperative pain control, status post total knee arthroplasty. Ropivacaine 0.2% is infusing at 8 mLs per hour. The patient has no complaints of right lower extremity numbness or weakness. Patient's VAS score is 3-4-10. Assessment: Patient's adductor canal catheter is in place and working appropriately. Plan: continue infusion and adjust it as needed.
[2023-02-21] MEDS: LACTATED RINGERS 1,000 ML IV SCH ×2 (08:23→08:24)
[2023-02-21] MEDS: SYMBICORT 160-4.5 MCG INHALER INHALATION SCH ×2 (08:23→20:32)
[2023-02-21] MEDS: APIXABAN 2.5 MG TABLET PO SCH ×2 (08:29→20:20)
[2023-02-21] MEDS ORDERED: BACLOFEN 10 MG TAB PO PRN (08:58)
[2023-02-21] MEDS ORDERED: valACYclovir HCL 500 MG TAB PO SCH (09:00)
[2023-02-21 09:13] LABS: Basophils # (A) 0.03 X 10*3/uL (0.00-0.10); Basophils % (A) 0.4 %; Eosinophils # (A) 0.13 X 10*3/uL (0.04-0.35); Eosinophils % (A) 1.9 %; HCT 38.2 % (37.2-46.3); HGB 12.8 d/dL (12.0-15.0); Lymphocytes # (A) 1.29 X 10*3/uL (0.90-5.00); Lymphocytes % (A) 18.6 %; MCH 32.2 pg (27.0-32.0); MCHC 33.5 d/dL (32.0-37.0); Mean Platelet Volume 11.8 FL (9.5-12.2); Monocytes # (A) 0.67 X 10*3/uL (0.20-1.00); Monocytes % (A) 9.7 %; NRBC Per 100 WBC 0 X 10*3/uL (0.00-0.01); Neutrophils % (A) 69.1 %; Platelet Count 169 X 10*3/uL (140-440); RBC 3.98 X 10*6/uL (4.10-5.20); RDW 11.9 % (11.5-14.5); WBC 6.94 X 10*3/uL (4.50-10.00)
[2023-02-21] MEDS: HYDROcodone/APAP 7.5-325MG 1 EACH TAB PO PRN ×2 (11:23→17:30)
--- NOTE | 2023-02-21 14:05 | P.PN ---
Subjective Progress Note Date: 02/21/23 This is a 77-year-old female who is status post right total knee arthroplasty. This is postoperative day #1 and patient is seen and evaluated at bedside today. Patient states that she is doing well and has been able to work with physical therapy. Patient denies any new complaints today. Objective - Vital Signs Vital signs: Vital Signs Temp 97.8 F 02/21/23 13:38 Pulse 86 02/21/23 13:38 Resp 16 02/21/23 13:38 BP 133/75 02/21/23 13:38 Pulse Ox 98 02/21/23 13:38 FiO2 Intake & Output 02/20/23 02/21/23 02/21/23 18:59 06:59 18:59 Intake Total 2261 Output Total 250 500 Balance 2010 Weight 99.4 kg Intake: IV 2050 Intake, IV Titration 210 Amount Sodium Chloride 0.9% 1, 210 000 ml @ 70 mls/hr IV . [id number] KEVIN Rx#:[id number] Output: Urine 200 500 Estimated Blood Loss 50 Other: Voiding Method Bedpan Diaper Incontinent External Catheter # Voids 2 - Exam Vital signs are stable. Patient is in no acute distress and is alert and oriented 3. Calf is soft and nontender to palpation. Dressing is clean, dry, and intact. Patient has full foot and ankle motion without pain or difficulty. Sensation intact. Neurovascular status and circulatory status are intact. - Labs CBC & Chem 7: 02/21/23 04:36 Labs: Abnormal Lab Results - Last 24 Hours (Table) 02/21/23 Range/Units 04:36 RBC 3.98 L (4.10-5.20) X 10*6/uL MCH 32.2 H (27.0-32.0) pg Assessment and Plan (1) Osteoarthritis of right knee Current Visit: Yes Status: Acute Code(s): M17.11 - UNILATERAL PRIMARY OSTEOARTHRITIS, RIGHT KNEE SNOMED Code(s): 866491382302929 (2) Status post total right knee replacement Current Visit: Yes Status: Acute Code(s): Z96.651 - SNOMED Code(s): 7264975088584 Plan: #1 Continue with routine postoperative care and pain control, leave dressing in place for 7 days. #2 Anticoagulation with Eliquis. #3 Physical therapy today. #4 Appreciate input from internal medicine. #5 Anticipate discharge to [facility] in the next 24-48 hours.
--- NOTE | 2023-02-21 17:21 | P.PN ---
Progress Note - Text Progress Note Date: 02/21/23 - Chief Complaint Right knee surgery - History of Present Illness This is a very pleasant 77-year-old patient who follows with Lou Glaser/Dr. Pérez. Chronic stable medical conditions include asthma, hyperlipidemia, chronic genital tonight to herpes for which she takes Valtrex for years, multiple sclerosis. Because of the latter she has chronic weakness in the right leg. With severe arthritis. Patient is undergoing right total knee arthroplasty. Postprocedure pain control. No nausea vomiting. No chest pain or shortness of breath. February 21: Up in a chair. Was a bit dizzy earlier today. Did eat some breakfast. Some pain at the operative site. Plan for patient to go to rehab per orthopedic. Active Medications Hydrocodone Bitart/Acetaminophen (Hydrocodone/Apap 7.5-325mg 1 Each Tab) 1 each PO Q6H PRN PRN Reason: Pain Scale 1 to 5 Stop: 03/22/23 11:50 Last Admin: 02/21/23 05:12 Dose: 1 each Hydrocodone Bitart/Acetaminophen (Hydrocodone/Apap 7.5-325mg 1 Each Tab) 2 each PO Q6H PRN PRN Reason: Pain Scale 6 to 10 Stop: 03/22/23 11:50 Last Admin: 02/21/23 11:23 Dose: 2 each Apixaban (Apixaban 2.5 Mg Tablet) 2.5 mg PO BID [facility]; Protocol Stop: 03/23/23 09:01 Last Admin: 02/21/23 08:29 Dose: 2.5 mg Baclofen (Baclofen 10 Mg Tab) 20 mg PO HS [facility] Last Admin: 02/20/23 21:02 Dose: 20 mg Baclofen (Baclofen 10 Mg Tab) 20 mg PO DAILY PRN PRN Reason: Muscle Spasm Bisacodyl (Bisacodyl 10 Mg Supp) 10 mg RECTAL DAILY PRN PRN Reason: Constipation Stop: 03/22/23 11:47 Budesonide/Formoterol Fumarate (Symbicort 160-4.5 Mcg Inhaler) 2 puff INHALATION RT-BID [facility] Last Admin: 02/21/23 08:23 Dose: 2 puff Ropivacaine 1,100 mg/ Sodium Chloride 330 ml/ Bandage/Support Products 1 each 0 mg MISCELLANE Q2H PRN PRN Reason: Breakthrough Pain Last Admin: 02/20/23 14:48 Dose: 1,100 mg Hydromorphone HCl (Hydromorphone 0.5 Mg/0.5 Ml Syringe) 0.125 mg IVP Q3HR PRN PRN Reason: Pain Scale 1 to 3 Stop: 03/22/23 11:47 Hydromorphone HCl (Hydromorphone 0.5 Mg/0.5 Ml Syringe) 0.5 mg IVP Q3HR PRN PRN Reason: Pain Scale 7 to 10 Stop: 03/22/23 11:47 Last Admin: 02/21/23 16:09 Dose: 0.5 mg Hydromorphone HCl (Hydromorphone 0.5 Mg/0.5 Ml Syringe) 0.25 mg IVP Q3HR PRN PRN Reason: Pain Scale 4 to 6 Stop: 03/22/23 11:47 Lactated Ringer's (Lactated Ringers) 1,000 mls @ 20 mls/hr IV .Q24H [facility] Stop: 03/22/23 08:31 Last Admin: 02/21/23 08:23 Dose: Not Given Lactated Ringer's (Lactated Ringers) 1,000 mls @ 20 mls/hr IV .Q24H [facility] Stop: 03/22/23 08:31 Last Admin: 02/21/23 08:24 Dose: Not Given Sodium Chloride (Saline 0.9%) 1,000 mls @ 70 mls/hr IV .[id number] [facility] Stop: 03/22/23 12:01 Last Admin: 02/21/23 05:11 Dose: 70 mls/hr Magnesium Hydroxide (Magnesium Hydroxide 2,400 Mg/30 Ml Cup) 2,400 mg PO DAILY PRN PRN Reason: Constipation Stop: 03/22/23 11:47 Montelukast Sodium (Montelukast 10 Mg Tab) 10 mg PO [facility] Last Admin: 02/20/23 21:03 Dose: 10 mg Naloxone HCl (Naloxone 0.4 Mg/Ml 1 Ml Vial) 0.2 mg IV Q2M PRN PRN Reason: Opioid Reversal Stop: 03/22/23 11:47 Ondansetron HCl (Ondansetron 4 Mg/2 Ml Vial) 4 mg IVP Q8HR PRN PRN Reason: Nausea And Vomiting Stop: 03/22/23 11:47 Pravastatin Sodium (Pravastatin Sodium 20 Mg Tab) 10 mg PO HS [facility] Last Admin: 02/20/23 21:02 Dose: 10 mg Senna/Docusate Sodium (Sennosides-Docusate Sodium 1 Each Tab) 2 each PO HS [facility] Stop: 03/22/23 21:01 Last Admin: 02/20/23 21:03 Dose: 2 each Sodium Biphosphate/Sodium Phosphate (Na Phos,M-B/Na Phos,Di-Ba 133 Ml Enema) 133 ml RECTAL DAILY PRN PRN Reason: Constipation Stop: 03/22/23 11:47 Valacyclovir HCl (Valacyclovir Hcl 500 Mg Tab) 500 mg PO DAILY [facility]; Protocol Last Admin: 02/21/23 08:18 Dose: Not Given Past medical history to include: Asthma, hyperlipidemia, osteoporosis, colon polyps, multiple sclerosis, genital herpes chronically on Valtrex Social history: Alcohol rarely. Smoked for about a short time the remote past. Lives alone. Physical examination: VITAL SIGNS: 97.8, 86, 16, 1 33 x 75, 98% room air GENERAL: Sitting up in recliner, comfortable EYES: Pupils equal. Conjunctiva normal. HEENT: External appearance of nose and ears normal, oral cavity grossly normal. NECK: JVD not raised; masses not palpable. HEART: First and second heart sounds are normal; no edema. LUNGS: Respiratory rate normal; clear to auscultation. ABDOMEN: Soft, nontender, liver spleen not palpable, no masses palpable. PSYCH: Alert and oriented x3; mood and affect normal. MUSCULOSKELETAL:No Clubbing/cyanosis;muscles-grossly intact. Dressing over the right knee. Evidence of OA other joints INVESTIGATIONS, reviewed in the clinical context: February 21: White count 8.9-year-old woman 12.8 platelets 169 01/30/2023: White count 7.08 hemoglobin 13.5 platelets 240 sodium 141 potassium 4.7. 18.8 creatinine 1.1 Assessment plan: -Right total knee arthroplasty. Pain control. Eliquis-DVT prophylaxis -Moderate persistent asthma Breo ellipta. Singulair. -Hyperlipidemia Pravachol -Chronic gait dysfunction from underlying MS with right leg weakness -Chronic multiple sclerosis -Chronic genital herpes Valtrex 500 mg a day maintenance dose discussed with the patient. Being evaluated for rehab Thank you Dr. Heithoff Past Medical History Past Medical History: Asthma, Hyperlipidemia, Osteoarthritis (OA) Additional Past Medical History / Comment(s): arthritis in back, rectal bleeding ,. colon polyps, MS, genital herpes history-valtrex has been taking for for over ten years per pt. History of Any Multi-Drug Resistant Organisms: None Reported Past Surgical History: Cholecystectomy, Hysterectomy, Joint Replacement, Orthopedic Surgery Additional Past Surgical History / Comment(s): lt knee replacement, rt knee surgery Past Anesthesia/Blood Transfusion Reactions: No Reported Reaction Past Psychological History: No Psychological Hx Reported Smoking Status: Former smoker Past Alcohol Use History: Rare Additional Past Alcohol Use History / Comment(s): smoker 10 years <1ppd Past Drug Use History: None Reported - Past Family History Mother Family Medical History: No Reported History
[2023-02-21] MEDS: PRAVASTATIN SODIUM 20 MG TAB PO SCH (20:20)
[2023-02-21] MEDS: SENNOSIDES-DOCUSATE SODIUM 1 EACH TAB PO SCH (20:20)
[2023-02-21] MEDS: BACLOFEN 10 MG TAB PO SCH (20:20)
[2023-02-21] MEDS: MONTELUKAST 10 MG TAB PO SCH (20:20)
[2023-02-22 00:46] LABS: Glucose,Whole Blood 125 mg/dL (70-110)
[2023-02-22] MEDS: NALOXONE 0.4 MG/ML 1 ML VIAL IV PRN ×4 (00:46→01:08)
--- NOTE | 2023-02-22 01:51 | CT ---
EXAM: CT Head Without Intravenous Contrast CLINICAL HISTORY: ITS.REASON CT Reason: Unresponsive TECHNIQUE: Axial computed tomography images of the head/brain without intravenous contrast. CTDI is 94.2 mGy and DLP is 2474.4 mGy-cm. This CT exam was performed using one or more of the following dose reduction techniques: automated exposure control, adjustment of the mA and/or kV according to patient size, and/or use of iterative reconstruction technique. COMPARISON: No relevant prior studies available. FINDINGS: Brain: Unremarkable. No hemorrhage. No significant white matter disease. No edema. Ventricles: Unremarkable. No ventriculomegaly. Bones/joints: Unremarkable. No acute fracture. Soft tissues: Unremarkable. Sinuses: Unremarkable as visualized. No acute sinusitis. Mastoid air cells: Unremarkable as visualized. No mastoid effusion. IMPRESSION: Normal head/brain CT.
[2023-02-22] MEDS: ACETAMINOPHEN TAB 500 MG TAB PO PRN ×3 (02:26→22:43)
[2023-02-22 04:16] LABS: African American GFR (CKD) 85 (>60 ml/min/1.73 sqM); Anion Gap 9 mmol/L; Blood Urea Nitrogen 12 mg/dL (7-17); Calcium 8.6 mg/dL (8.4-10.2); Carbon Dioxide 21 mmol/L (22-30); Chloride 103 mmol/L (98-107); Glucose 145 mg/dL (74-99); Non-African American GFR(CKD) 74 (>60 ml/min/1.73 sqM); Potassium 4.5 mmol/L (3.5-5.1); Sodium 133 mmol/L (137-145)
[2023-02-22] MEDS: APIXABAN 2.5 MG TABLET PO SCH ×2 (07:56→20:13)
[2023-02-22] MEDS: SODIUM CHLORIDE 0.9% 1,000 ML IV SCH ×2 (07:57→22:26)
[2023-02-22] MEDS: SYMBICORT 160-4.5 MCG INHALER INHALATION SCH ×2 (09:24→21:03)
[2023-02-22] MEDS ORDERED: traMADol 50 MG TAB PO PRN ×2 (09:58)
--- NOTE | 2023-02-22 10:01 | P.PN ---
Subjective Progress Note Date: 02/22/23 This is a 77-year-old female who is status post right total knee arthroplasty. This is postoperative day #1 and patient is seen and evaluated at bedside today. Per nursing, the patient had to have Narcan administered 4 times last night after being found unresponsive. Patient states that she was doing well this morning, but is feeling nauseous. Patient had a brain CT done which was normal. Patient states that she plans to just take Tylenol for pain. Patient is awaiting discharge to inpatient rehab. Objective - Vital Signs Vital signs: Vital Signs Temp 98.4 F 02/22/23 07:17 Pulse 84 02/22/23 07:17 Resp 17 02/22/23 07:17 BP 125/69 02/22/23 07:17 Pulse Ox 96 02/22/23 07:17 FiO2 Intake & Output 02/21/23 02/22/23 02/22/23 18:59 06:59 18:59 Output Total 1500 1100 Balance -1500 -1100 Output: Urine 1500 1100 Other: Voiding Method Diaper Diaper Incontinent Incontinent External Catheter External Catheter - Exam Vital signs are stable. Patient is in no acute distress and is alert and orien latanya 3. Calf is soft and nontender to palpation. Dressing is clean, dry, and intact. Patient has full foot and ankle motion without pain or difficulty. Sensation intact. Neurovascular status and circulatory status are intact. - Labs CBC & Chem 7: 02/21/23 04:36 02/22/23 03:43 Labs: Abnormal Lab Results - Last 24 Hours (Table) 02/22/23 02/22/23 Range/Units 00:44 03:43 Sodium 133 L (137-145) mmol/L Carbon Dioxide 21 L (22-30) mmol/L Glucose 145 H (74-99) mg/dL POC Glucose (mg/dL) 125 H (70-110) mg/dL Assessment and Plan (1) Osteoarthritis of right knee Current Visit: Yes Status: Acute Code(s): M17.11 - UNILATERAL PRIMARY OSTEOARTHRITIS, RIGHT KNEE SNOMED Code(s): 524574615230796 (2) Status post total right knee replacement Current Visit: Yes Status: Acute Code(s): Z96.651 - PRESENCE OF RIGHT ARTIFICIAL KNEE JOINT SNOMED Code(s): 0981390260415 Plan: #1 Continue with routine postoperative care and pain control, leave dressing in place for 7 days. #2 Anticoagulation with Eliquis. #3 Physical therapy today. #4 Appreciate input from internal medicine. #5 Anticipate discharge to [facility] in the next 24-48 hours.
--- NOTE | 2023-02-22 15:28 | P.PN ---
Progress Note - Text Progress Note Date: 02/22/23 - Chief Complaint Right knee surgery - History of Present Illness This is a very pleasant 77-year-old patient who follows with Lou Glaser/Dr. Pérez. Chronic stable medical conditions include asthma, hyperlipidemia, chronic genital tonight to herpes for which she takes Valtrex for years, multiple sclerosis. Because of the latter she has chronic weakness in the right leg. With severe arthritis. Patient is undergoing right total knee arthroplasty. Postprocedure pain control. No nausea vomiting. No chest pain or shortness of breath. February 21: Up in a chair. Was a bit dizzy earlier today. Did eat some breakfast. Some pain at the operative site. Plan for patient to go to rehab per orthopedic. February 22: Some pain and stiffness at the operative site. Had an episode of unresponsive asked midnight night after getting Dilaudid. Discontinued. She had no focal findings. Computed tomography scan of the heart unremarkable. Patient be going to rehab. Change the dose of baclofen. Active Medications Acetaminophen (Acetaminophen Tab 500 Mg Tab) 1,000 mg PO Q6HR PRN PRN Reason: Fever and/ or Pain Last Admin: 02/22/23 02:26 Dose: 1,000 mg Apixaban (Apixaban 2.5 Mg Tablet) 2.5 mg PO BID [facility]; Protocol Stop: 03/23/23 09:01 Last Admin: 02/22/23 07:56 Dose: 2.5 mg Bisacodyl (Bisacodyl 10 Mg Supp) 10 mg RECTAL DAILY PRN PRN Reason: Constipation Stop: 03/22/23 11:47 Budesonide/Formoterol Fumarate (Symbicort 160-4.5 Mcg Inhaler) 2 puff INHALATION RT-BID [facility] Last Admin: 02/22/23 09:24 Dose: 2 puff Ropivacaine 1,100 mg/ Sodium Chloride 330 ml/ Bandage/Support Products 1 each 0 mg MISCELLANE Q2H PRN PRN Reason: Breakthrough Pain Last Admin: 02/20/23 14:48 Dose: 1,100 mg Sodium Chloride (Saline 0.9%) 1,000 mls @ 70 mls/hr IV .[id number] [facility] Stop: 03/22/23 12:01 Last Admin: 02/22/23 07:57 Dose: 70 mls/hr Magnesium Hydroxide (Magnesium Hydroxide 2,400 Mg/30 Ml Cup) 2,400 mg PO DAILY PRN PRN Reason: Constipation Stop: 03/22/23 11:47 Montelukast Sodium (Montelukast 10 Mg Tab) 10 mg PO [facility] Last Admin: 02/21/23 20:20 Dose: 10 mg Naloxone HCl (Naloxone 0.4 Mg/Ml 1 Ml Vial) 0.2 mg IV Q2M PRN PRN Reason: Opioid Reversal Stop: 03/22/23 11:47 Last Admin: 02/22/23 01:08 Dose: 0.2 mg Ondansetron HCl (Ondansetron 4 Mg/2 Ml Vial) 4 mg IVP Q8HR PRN PRN Reason: Nausea And Vomiting Stop: 03/22/23 11:47 Last Admin: 02/22/23 08:56 Dose: 4 mg Pravastatin Sodium (Pravastatin Sodium 20 Mg Tab) 10 mg PO [facility] Last Admin: 02/21/23 20:20 Dose: 10 mg Senna/Docusate Sodium (Sennosides-Docusate Sodium 1 Each Tab) 2 each PO [facility] Stop: 03/22/23 21:01 Last Admin: 02/21/23 20:20 Dose: 2 each Sodium Biphosphate/Sodium Phosphate (Na Phos,M-B/Na Phos,Di-Ba 133 Ml Enema) 133 ml RECTAL DAILY PRN PRN Reason: Constipation Stop: 03/22/23 11:47 Past medical history to include: Asthma, hyperlipidemia, osteoporosis, colon polyps, multiple sclerosis, genital herpes chronically on Valtrex Social history: Alcohol rarely. Smoked for about a short time the remote past. Lives alone. Physical examination: VITAL SIGNS: 97.9, 89, 18, 122/77, 99% room air GENERAL: Sitting up in recliner, comfortable EYES: Pupils equal. Conjunctiva normal. HEENT: External appearance of nose and ears normal, oral cavity grossly normal. NECK: JVD not raised; masses not palpable. HEART: First and second heart sounds are normal; no edema. LUNGS: Respiratory rate normal; clear to auscultation. ABDOMEN: Soft, nontender, liver spleen not palpable, no masses palpable. PSYCH: Alert and oriented x3; mood and affect normal. MUSCULOSKELETAL:No Clubbing/cyanosis;muscles-grossly intact. Dressing over the right knee. Evidence of OA other joints INVESTIGATIONS, reviewed in the clinical context: February 22: Potassium 4.5 creatinine 0.79 February 21: White count 8.9-year-old woman 12.8 platelets 169 01/30/2023: White count 7.08 hemoglobin 13.5 platelets 240 sodium 141 potassium 4.7. 18.8 creatinine 1.1 Assessment plan: -Right total knee arthroplasty. Pain control. Eliquis-DVT prophylaxis -Episode of unresponsiveness from Dilaudid. Discontinued. Computed tomography scan brain unremarkable -Muscle spasms. As baclofen can be rather sedating. Cutback baclofen to 5 mg every 8. -Moderate persistent asthma Breo ellipta. Singulair. -Hyperlipidemia Pravachol -Chronic gait dysfunction from underlying MS with right leg weakness -Chronic multiple sclerosis -Patient does not have chronic genital herpes. Does not take Valtrex on a chronic basis. I was informed yesterday but the patient and nurse. discussed with the patient. Continue current medication treatment plan. Pending to go to rehab. Thank you Dr. Trinidad Past Medical History Past Medical History: Asthma, Hyperlipidemia, Osteoarthritis (OA) Additional Past Medical History / Comment(s): arthritis in back, rectal bleeding ,. colon polyps, MS, genital herpes history-valtrex has been taking for for over ten years per pt. History of Any Multi-Drug Resistant Organisms: None Reported Past Surgical History: Cholecystectomy, Hysterectomy, Joint Replacement, Ort hopedic Surgery Additional Past Surgical History / Comment(s): lt knee replacement, rt knee surgery Past Anesthesia/Blood Transfusion Reactions: No Reported Reaction Past Psychological History: No Psychological Hx Reported Smoking Status: Former smoker Past Alcohol Use History: Rare Additional Past Alcohol Use History / Comment(s): smoker 10 years <1ppd Past Drug Use History: None Reported - Past Family History Mother Family Medical History: No Reported History
[2023-02-22] MEDS: BACLOFEN 10 MG TAB PO PRN ×2 (15:41→22:44)
[2023-02-22] MEDS ORDERED: BACLOFEN 10 MG TAB PO SCH (16:00)
[2023-02-22] MEDS: traMADol 50 MG TAB PO PRN (19:29)
[2023-02-22] MEDS: SENNOSIDES-DOCUSATE SODIUM 1 EACH TAB PO SCH (20:13)
[2023-02-22] MEDS: MONTELUKAST 10 MG TAB PO SCH (20:14)
[2023-02-22] MEDS: PRAVASTATIN SODIUM 20 MG TAB PO SCH (20:14)
[2023-02-23] MEDS: traMADol 50 MG TAB PO PRN ×4 (03:47→21:22)
[2023-02-23] MEDS: ACETAMINOPHEN TAB 500 MG TAB PO PRN ×4 (05:36→23:55)
[2023-02-23] MEDS: BACLOFEN 10 MG TAB PO PRN ×3 (06:46→23:55)
[2023-02-23] MEDS: SYMBICORT 160-4.5 MCG INHALER INHALATION SCH ×2 (08:30→19:57)
[2023-02-23] MEDS: APIXABAN 2.5 MG TABLET PO SCH ×2 (08:59→21:23)
[2023-02-23 10:43] LABS: African American GFR (CKD) >90 (>60 ml/min/1.73 sqM); Anion Gap 6 mmol/L; Blood Urea Nitrogen 12 mg/dL (7-17); Calcium 8.5 mg/dL (8.4-10.2); Carbon Dioxide 22 mmol/L (22-30); Chloride 107 mmol/L (98-107); Glucose 110 mg/dL (74-99); Non-African American GFR(CKD) 81 (>60 ml/min/1.73 sqM); Potassium 4.3 mmol/L (3.5-5.1); Sodium 135 mmol/L (137-145)
[2023-02-23 11:25] LABS: Basophils # (A) 0.04 X 10*3/uL (0.00-0.10); Basophils % (A) 0.5 %; Eosinophils # (A) 0.26 X 10*3/uL (0.04-0.35); Eosinophils % (A) 3.3 %; HCT 32.9 % (37.2-46.3); HGB 10.6 d/dL (12.0-15.0); Lymphocytes # (A) 1.71 X 10*3/uL (0.90-5.00); Lymphocytes % (A) 21.7 %; MCH 31.6 pg (27.0-32.0); MCHC 32.2 d/dL (32.0-37.0); MCV 98.2 FL (80.0-97.0); Mean Platelet Volume 12.5 FL (9.5-12.2); Monocytes # (A) 0.78 X 10*3/uL (0.20-1.00); Monocytes % (A) 9.9 %; NRBC Per 100 WBC 0 X 10*3/uL (0.00-0.01); Neutrophils # (A) 5.06 X 10*3/uL (1.80-7.70); Neutrophils % (A) 64.2 %; Platelet Count 173 X 10*3/uL (140-440); RBC 3.35 X 10*6/uL (4.10-5.20); RDW 12.1 % (11.5-14.5); WBC 7.88 X 10*3/uL (4.50-10.00)
--- NOTE | 2023-02-23 12:09 | P.PN ---
Subjective Progress Note Date: 02/23/23 This is a 77-year-old female who is status post right total knee arthroplasty. This is postoperative day #3 and patient is seen and evaluated at bedside today. Patient states that she is doing well with physical therapy and her pain is well controlled with Tylneol and Ultram. Patient denies any new complaints today. Patient is awaiting discharge to inpatient rehab. Objective - Vital Signs Vital signs: Vital Signs Temp 98.6 F 02/23/23 06:47 Pulse 72 02/23/23 06:47 Resp 17 02/23/23 06:47 BP 109/66 02/23/23 06:47 Pulse Ox 94 L 02/23/23 06:47 FiO2 Intake & Output 02/22/23 02/23/23 02/23/23 18:59 06:59 18:59 Intake Total 160 Output Total 1000 420 Balance -840 -420 Intake: Intake, IV Titration 160 Amount Lactated Ringers 1,000 ml 160 @ 20 mls/hr IV .Q24H [facility] Rx#:[id number] Output: Urine 1000 420 Other: Voiding Method External Catheter External Catheter - Exam Vital signs are stable. Patient is in no acute distress and is alert and oriented 3. Calf is soft and nontender to palpation. Dressing is clean, dry, and intact. Patient has full foot and ankle motion without pain or difficulty. Sensation intact. Neurovascular status and circulatory status are intact. - Labs CBC & Chem 7: 02/23/23 06:28 02/23/23 06:28 Labs: Abnormal Lab Results - Last 24 Hours (Table) 02/23/23 02/23/23 Range/Units 06:28 06:28 RBC 3.35 L (4.10-5.20) X 10*6/uL Hgb 10.6 L (12.0-15.0) d/dL Hct 32.9 L (37.2-46.3) % MCV 98.2 H (80.0-97.0) FL MPV 12.5 H (9.5-12.2) FL Sodium 135 L (137-145) mmol/L Glucose 110 H (74-99) mg/dL Assessment and Plan (1) Osteoarthritis of right knee Current Visit: Yes Status: Acute Code(s): M17.11 - UNILATERAL PRIMARY OSTEOARTHRITIS, RIGHT KNEE SNOMED Code(s): 265119433243232 (2) Status post total right knee replacement Current Visit: Yes Status: Acute Code(s): Z96.651 - PRESENCE OF RIGHT ARTIFICIAL KNEE JOINT SNOMED Code(s): 1167805098333 Plan: #1 Continue with routine postoperative care and pain control, leave dressing in place for 7 days. #2 Anticoagulation with Eliquis. #3 Physical therapy today. #4 Appreciate input from internal medicine. #5 [facility]
--- NOTE | 2023-02-23 14:21 | P.PN ---
Subjective Progress Note Date: 02/23/23 This is a 77-year-old female who is status post right total knee arthroplasty today patient is day 1. Patient is having some pain and stiffness of the operative site she has been up ambulating with physical therapy. No more episodes of unresponsiveness Dilaudid has been discontinued. Patient will be discharged to subacute rehab at [facility] tomorrow. Labs today are showing a white count of 7.88, hemoglobin 10.6, sodium 135. Blood glucose is controlled and renal function is stable. She is afebrile, heart rate of 72, blood pressure 109/66 to 94% room air. Continue to encourage incentive spirometer and continue on bowel regimen. Review of Systems Constitutional: Denied any fatigue denied any fever. Cardio vascular: denied any chest pain, palpitations Gastrointestinal: denied any nausea, vomiting, diarrhea Pulmonary: Denied any shortness of breath cough Neurologic denied any new focal deficits All inpatient medications were reviewed and appropriate changes in these medications as dictated in the interval history and assessment and plan. PHYSICAL EXAMINATION: GENERAL: The patient is alert and oriented x3, not in any acute distress. Well developed, well nourished. Obese HEENT: Pupils are round and equally reacting to light. EOMI. No scleral icterus. No conjunctival pallor. Normocephalic, atraumatic. No pharyngeal erythema. No thyromegaly. CARDIOVASCULAR: S1 and S2 present. No murmurs, rubs, or gallops. PULMONARY: Chest is clear to auscultation, no wheezing or crackles. ABDOMEN: Soft, nontender, nondistended, normoactive bowel sounds. No palpable organomegaly. MUSCULOSKELETAL: No joint swelling or deformity. Post surgical right knee. EXTREMITIES: No cyanosis, clubbing, or pedal edema. NEUROLOGICAL: Gross neurological examination did not reveal any focal deficits. SKIN: No rashes. Assessment -Right total knee arthroplasty. -Episode of unresponsiveness from Dilaudid. Discontinued. -Muscle spasms on baclofen which has been cut back -Moderate persistent asthma -Hyperlipidemia -Chronic gait dysfunction from underlying MS with right leg weakness -Chronic multiple sclerosis GI prophylaxis DVT prophylaxis anticoagulated with eliquis Full Code Plan Patient to be continued on Tylenol and Ultram alternating for pain management patient also continues with the localized anesthetic. On bowel regimen. Recommend conservative management of narcotics due to episode of unresponsiveness. Patient is on low dose anticoagulant eliquis 2.5 BID. Patient can be accomodated at the [facility] ([place], [place]) bed tomorrow Monday and patient will be discharged tomorrow. Medically she is stable. The impression and plan of care has been dictated by Stephanie Quezada, Nurse Practitioner as directed. Dr. Dickson MD I have performed a history and physical examination and medical decision making of this patient, discussed the same with the dictator, and agree with the dictators assessment and plan as written, documented as a scribe. Based on total visit time, I have performed more than 50% of this visit. Objective - Vital Signs Vital signs: Vital Signs Temp 98.6 F 02/23/23 06:47 Pulse 72 02/23/23 06:47 Resp 17 02/23/23 06:47 BP 109/66 02/23/23 06:47 Pulse Ox 94 L 02/23/23 06:47 FiO2 Intake & Output 02/22/23 02/23/23 02/23/23 18:59 06:59 18:59 Intake Total 160 Output Total 1000 420 Balance -840 -420 Intake: Intake, IV Titration 160 Amount Lactated Ringers 1,000 ml 160 @ 20 mls/hr IV .Q24H [facility] Rx#:[id number] Output: Urine 1000 420 Other: Voiding Method External Catheter External Catheter - Labs CBC & Chem 7: 02/23/23 06:28 02/23/23 06:28 Labs: Abnormal Lab Results - Last 24 Hours (Table) 02/23/23 02/23/23 Range/Units 06:28 06:28 RBC 3.35 L (4.10-5.20) X 10*6/uL Hgb 10.6 L (12.0-15.0) d/dL Hct 32.9 L (37.2-46.3) % MCV 98.2 H (80.0-97.0) FL MPV 12.5 H (9.5-12.2) FL Sodium 135 L (137-145) mmol/L Glucose 110 H (74-99) mg/dL Assessment and Plan Time with Patient: Less than 30
[2023-02-23] MEDS ORDERED: OXYBUTYNIN XL 5 MG TAB.ER.24 PO SCH (20:00)
[2023-02-23] MEDS: MONTELUKAST 10 MG TAB PO SCH (21:21)
[2023-02-23] MEDS: PRAVASTATIN SODIUM 20 MG TAB PO SCH (21:24)
[2023-02-23] MEDS: SENNOSIDES-DOCUSATE SODIUM 1 EACH TAB PO SCH (21:24)
[2023-02-24 02:20] VITALS: RESP 18; TEMP 98.4
[2023-02-24] MEDS: traMADol 50 MG TAB PO PRN ×2 (02:51→08:39)
[2023-02-24] MEDS: ACETAMINOPHEN TAB 500 MG TAB PO PRN (06:17)
[2023-02-24] MEDS: BACLOFEN 10 MG TAB PO PRN (06:17)
[2023-02-24 08:03] VITALS: BP 129/74; PULSE 85
--- NOTE | 2023-02-24 08:39 | P.DS ---
Providers Date of admission: 02/21/23 10:37 Expected date of discharge: 02/24/23 Attending physician: Kapil Trinidad Consults: 02/20/23 11:46 Consult Physician Routine Consulting Provider: Alexandro Stiles Consult Reason/Comments: medical management Do you want consulting provider notified?: Yes Primary care physician: Christopher Pérez - Discharge Diagnosis(es) (1) Osteoarthritis of right knee Current Visit: Yes Status: Acute (2) Status post total right knee replacement Current Visit: Yes Status: Acute Hospital Course: This is a 77-year-old female who was last seen with complaint of continued right knee pain. The patient has a known history of degenerative arthritis of the right knee and presents to discuss surgical options. After discussion and consideration the patient elects to proceed with total right knee arthroplasty. The patient is seen preoperatively by her primary care physician and cleared for surgery. The patient is admitted to [facility] for total right knee arthroplasty. The procedures performed without complication or sequelae. Patient is doing well postoperatively. Vital signs are stable at discharge. Labs are stable at discharge. She has been awaiting transfer to inpatient rehab. The patient is discharged to inpatient rehab on postop day #4 pending medical clearance. Please see orders and refer to the [facility] rec for accurate list of medications. Patient Condition at Discharge: Good Plan - Discharge Summary Discharge Rx Participant: No New Discharge Prescriptions: New traMADol HCl [Ultram] 50 mg PO Q6H PRN #28 tab PRN Reason: Pain Apixaban [Eliquis] 2.5 mg PO BID 30 Days #60 tab Sennosides [Senokot] 2 tab PO DAILY PRN #60 tablet PRN Reason: Constipation No Action Docusate [Colace] 100 mg PO DAILY Pravastatin Sodium [Pravachol] 10 mg PO HS Montelukast [Singulair] 10 mg PO HS Baclofen [Lioresal] 20 mg PO HS Fluticasone/Vilanterol [Breo Ellipta 200-25 Mcg Inhaler] 1 dose INHALATION DAILY Acetaminophen/Diphenhydramine [Tylenol PM 500-25mg] 1 tab PO HS Discharge Medication List Baclofen [Lioresal] 20 mg PO HS 07/29/19 [History] Docusate [Colace] 100 mg PO DAILY 07/29/19 [History] Montelukast [Singulair] 10 mg PO HS 07/29/19 [History] Pravastatin Sodium [Pravachol] 10 mg PO HS 07/29/19 [History] Acetaminophen/Diphenhydramine [Tylenol PM 500-25mg] 1 tab PO HS 09/05/22 [History] Fluticasone/Vilanterol [Breo Ellipta 200-25 Mcg Inhaler] 1 dose INHALATION DAILY 02/17/23 [History] Apixaban [Eliquis] 2.5 mg PO BID 30 Days #60 tab 02/20/23 [Rx] Sennosides [Senokot] 2 tab PO DAILY PRN #60 tablet 02/20/23 [Rx] traMADol HCl [Ultram] 50 mg PO Q6H PRN #28 tab 02/23/23 [Rx] Follow up Appointment(s)/Referral(s): Christopher Pérez MD [Primary Care Provider] - 1 Week Kapil Trinidad DO [Doctor of Osteopathic Medicine] - 03/13/23 2:00 pm (With Laureen) Patient Instructions/Handouts: *Surgery [facility] - On-Q Pain Pump Discharge Instructions, Knee Replacement (DC) Activity/Diet/Wound Care/Special Instructions: Weightbearing as tolerated with a walker. CPM 5-6h daily as tolerated. Settings: Start CPM at 45 degrees then increase 5 degrees each use as tolerated, max of 15 degrees increase in 24 hours. Leave dressing intact. Dressing may be removed by nurse or by patient in 7 days. Then change dressing twice daily until follow up. May shower with initial dressing intact and after removal. If dressing become saturated, please remove. Recommend use of compression stockings daily until follow up to help prevent swelling and blood clots. May remove at night before sleeping. Please take Eliquis twice daily for 30 days postoperatively for blood clot prevention. Please follow up with [facility] and call with any questions or concerns, . Discharge Disposition: TRANSFER TO SNF/F
[2023-02-24] MEDS: APIXABAN 2.5 MG TABLET PO SCH (08:40)
[2023-02-24] MEDS: SYMBICORT 160-4.5 MCG INHALER INHALATION SCH (08:44)
--- NOTE | 2023-02-24 09:16 | P.PN ---
Subjective Progress Note Date: 02/24/23 77-year-old female who is status post right total knee arthroplasty today patient is day 2. White to send blood work reviewed, Medrek completed. Cleared from ortho standpoint for discharge Chart was reviewed, patient had already left prior to complete examination. Medication reconciliation was completed Objective - Vital Signs Vital signs: Vital Signs Temp 98.4 F 02/24/23 07:51 Pulse 85 02/24/23 07:51 Resp 18 02/24/23 07:51 BP 129/74 02/24/23 07:51 Pulse Ox 94 L 02/24/23 07:51 FiO2 Intake & Output 02/23/23 02/24/23 02/24/23 18:59 06:59 18:59 Other: Voiding Method Toilet # Voids 4 1 # Bowel Movements 1 - Labs CBC & Chem 7: 02/23/23 06:28 02/23/23 06:28 Labs: Abnormal Lab Results - Last 24 Hours (Table) 02/23/23 02/23/23 Range/Units 06:28 06:28 RBC 3.35 L (4.10-5.20) X 10*6/uL Hgb 10.6 L (12.0-15.0) d/dL Hct 32.9 L (37.2-46.3) % MCV 98.2 H (80.0-97.0) FL MPV 12.5 H (9.5-12.2) FL Sodium 135 L (137-145) mmol/L Glucose 110 H (74-99) mg/dL Assessment and Plan Assessment: Assessment -Right total knee arthroplasty. 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
== END 2023-02-24 11:14 | DRG 469 ==
LOC: OR 10:37 → 4SSUR 14:30 → OR 02-21 10:37 → 4SSUR 02-21 10:37
PROVIDERS: ADMIT Orthopaedic Surgery; ATTEND Orthopaedic Surgery
PROC: 3E0T3BZ Introduction of Anesthetic Agent into Peripheral Nerves and Plexi, Percutaneous Approach (ICD-10-PCS; 2023-02-20)
PROC: 0SRC0J9 Replacement of Right Knee Joint with Synthetic Substitute, Cemented, Open Approach (ICD-10-PCS; principal; 2023-02-21)
DX: M17.11 Unilateral primary osteoarthritis, right knee (principal); G92.8 Other toxic encephalopathy; G35 Multiple sclerosis; J45.40 Moderate persistent asthma, uncomplicated; E78.5 Hyperlipidemia, unspecified; M25.761 Osteophyte, right knee; M81.0 Age-related osteoporosis without current pathological fracture; A60.09 Herpesviral infection of other urogenital tract; T42.0X5A Adverse effect of hydantoin derivatives, initial encounter; M62.838 Other muscle spasm; M47.9 Spondylosis, unspecified; Z96.652 Presence of left artificial knee joint; Z87.19 Personal history of other diseases of the digestive system; Z87.891 Personal history of nicotine dependence; Z79.899 Other long term (current) drug therapy; Z79.01 Long term (current) use of anticoagulants; Z79.51 Long term (current) use of inhaled steroids; Z88.6 Allergy status to analgesic agent; Z88.0 Allergy status to penicillin; Z88.1 Allergy status to other antibiotic agents
CPT/HCPCS: 64448; 64999; 70450; 80048; 85025; 94640

== ENCOUNTER → 2023-08-30 | Outpatient (CLI) | payer MEDICARE, OTHER ==
[2023-08-30 18:34] LABS: Basophils # (A) 0.06 X 10*3/uL (0.00-0.10); Basophils % (A) 0.8 %; Eosinophils # (A) 0.17 X 10*3/uL (0.04-0.35); Eosinophils % (A) 2.1 %; HGB 13.3 g/dL (12.0-15.0); Lymphocytes # (A) 1.91 X 10*3/uL (0.90-5.00); MCH 31.7 pg (27.0-32.0); MCHC 32.4 g/dL (32.0-37.0); MCV 97.9 FL (80.0-97.0); Mean Platelet Volume 11.8 FL (9.5-12.2); Monocytes # (A) 0.52 X 10*3/uL (0.20-1.00); Monocytes % (A) 6.5 %; NRBC Per 100 WBC 0 X 10*3/uL (0.00-0.01); Neutrophils # (A) 5.29 X 10*3/uL (1.80-7.70); Neutrophils % (A) 66.3 %; Platelet Count 265 X 10*3/uL (140-440); RBC 4.19 X 10*6/uL (4.10-5.20); RDW 12.5 % (11.5-14.5); WBC 7.97 X 10*3/uL (4.50-10.00)
[2023-08-30 18:43] LABS: Erythrocyte Sedimentation Rate 11 mm/Hr (0-30)
== END | disposition home or self-care (01) ==
LOC: LABWHC1 14:17
PROVIDERS: ATTEND Orthopaedic Surgery
DX: M16.11 Unilateral primary osteoarthritis, right hip (principal); M25.551 Pain in right hip; Z47.1 Aftercare following joint replacement surgery; Z96.651 Presence of right artificial knee joint
CPT/HCPCS: 36415; 85025; 85652; 86140